=== PATIENT | female | born 1995 | race Caucasian/White ===

== ENCOUNTER 2017-01-18 04:17 | Inpatient (IN) | payer OTHER ==
[2017-01-18] MEDS ORDERED: OLANZapine 10 MG/2 ML VIAL IM ONE ×2 (04:22→04:28)
--- NOTE | 2017-01-18 04:52 | EDPHY ---
H & P Stated Complaint: psych eval, brought by [facility] for SI, attempted to cut self with screwdriver - Personal History Current Tetanus/Diphtheria Vaccine: Unsure Current Tetanus Diphtheria and Acellular Pertussis (TDAP): Unsure - Medical/Surgical History Other PMH: fx leg - Social History Smoking Status: Never smoked Time Seen by Provider: 01/18/17 04:26 HPI/ROS: Chief Complaint: Suicidal ideation, intoxication HPI: 21-year-old intoxicated female was expressing suicidal ideation to her roommates. She then grabbed screwdriver attempted to stab herself in the left arm. PD was called and she was placed on a mental health hold. Patient admits to prior suicidal attempts in the past. She is not currently being treated for depression. Does admit to drinking alcohol. Denies any other drug use. No falls or head injuries. Denies any other complaints or injuries at this time. ROS: 10 point Review of Systems is negative except as noted in the HPI. PMH: Depression Social History: No smoking, positive alcohol, no recreational drug use Family History: non-contributory Physical Exam: Gen: Awake, Alert, slurred speech, aggressive and belligerent HEENT: Nose: no rhinorrhea Eyes: PERRLA, EOMI Mouth: Moist mucosa Neck: Supple, no JVD Chest: nontender, lungs clear to auscultation Heart: S1, S2 normal, no murmur Abd: Soft, non-tender, no guarding Back: no CVA tenderness, no midline tenderness Ext: no edema, non-tender, she has superficial scratches over her left forearm which do not Skin: no rash Neuro: CN II-XII intact, Sensation grossly intact, Strength 5/5 in bilateral upper and lower extremities (Bruce Novak) Constitutional: Initial Vital Signs Heart Rate 111 H 01/18/17 04:35 Respiratory Rate 34 H 01/18/17 04:35 Blood Pressure 136/84 H 01/18/17 04:35 O2 Sat (%) 100 01/18/17 04:35 O2 Delivery Mode Room Air Allergies/Adverse Reactions: No Known Allergies Allergy (Verified 01/18/17 18:29) Home Medications: Medication Instructions Recorded Ethinyl Estradiol/Drospirenone 1 each PO DAILY 01/18/17 [Yamel 28 Tablet] Medical Decision Making ED Course/Re-evaluation: [address] Burleson pending evaluation and disposition. no issues during my care this patient overnight. (Bruce Novak) Other Provider: Care assumed at 1500 with psych evaluation pending. Elevated alcohol and positive cocaine noted. Temperature 36.8degrees axillary at 5:14 a.m.. The patient will be transferred to [facility] for inpatient psychiatric hospital bed not available at this facility, in stable condition; accepting physician is Dr. Oliverio Cardenas, at 5:49 p.m.. (Isidro Richardson) - Data Points Laboratory Results: Laboratory Results 01/18/17 05:00 01/18/17 05:00 01/18/17 12:30 Urine Opiates Screen NEGATIVE (NEGATIVE) Urine Barbiturates NEGATIVE (NEGATIVE) Ur Phencyclidine Scrn NEGATIVE (NEGATIVE) Ur Amphetamine Screen NEGATIVE (NEGATIVE) U Benzodiazepines Scrn NEGATIVE (NEGATIVE) Urine Cocaine Screen NON-NEGATIVE H (NEGATIVE) U Marijuana (THC) Screen NEGATIVE (NEGATIVE) Medications Given: Discontinued Medications Olanzapine (Zyprexa Im Injection) 10 mg IM EDNOW ONE Stop: 01/18/17 04:29 Last Admin: 01/18/17 04:30 Dose: 10 mg Departure - Departure Disposition: [facility] IP Clinical Impression: Severe major depression, Suicidal ideation Alcohol intoxication Qualifiers: Complication of substance-induced condition: uncomplicated Qualified Code(s): F10.920 - Alcohol use, unspecified with intoxication, uncomplicated Instructions: Alcohol Intoxication (ED) Referrals: Derrell Simms MD [Medical Doctor] - As per Instructions
[2017-01-18 05:07] LABS: % IMMATURE GRANULYOCYTES 0.4 % (0.0-1.1); ABSOLUTE IMMATURE GRANULOCYTES 0.03 10^3/uL (0.00-0.10); ADD DIFF? NO; ADD MORPH? NO; ADD SCAN? NO; ATYPICAL LYMPHOCYTE FLAG 30 (0-99); FRAGMENT RBC FLAG 0 (0-99); HEMATOCRIT 42.4 % (38.0-47.0); HEMOGLOBIN 14.7 g/dL (12.6-16.3); LEFT SHIFT FLG 0 (0-99); LIPEMIA HEMOLYSIS FLAG 90 (0-99); MEAN CELL HEMOGLOBIN 31.1 pg (27.9-34.1); MEAN CELL HEMOGLOBIN CONCENTR. 34.7 g/dL (32.4-36.7); MEAN CELL VOLUME 89.6 fL (81.5-99.8); MEAN PLATELET VOLUME 8.6 fL (8.7-11.7); PLATELET CLUMPS FLAG 0 (0-99); PLATELET COUNT 337 10^3/uL (150-400); RED BLOOD CELL COUNT 4.73 10^6/uL (4.18-5.33); RED CELL DISTRIBUTION WIDTH 11.9 % (11.5-15.2)
[2017-01-18 05:19] LABS: ANION GAP 18 mEq/L (8-16); CALCIUM 9.2 mg/dL (8.5-10.4); CARBON DIOXIDE 19 mEq/l (22-31); CHLORIDE 107 mEq/L (97-110); CREATININE 0.8 mg/dL (0.6-1.0); ETHANOL SERUM 247 mg/dL (0-10); GLOMERULAR FILTRATION RATE > 60; GLUCOSE 104 mg/dL (70-100); SODIUM 144 mEq/L (134-144)
[2017-01-18] MEDS ORDERED: ACETAMINOPHEN 325 MG TAB PO PRN (21:28)
[2017-01-18] MEDS ORDERED: NICOTINE POLACRILEX 2 MG GUM B PRN (21:28)
[2017-01-18] MEDS ORDERED: MAGNESIUM HYDROXIDE 30 ML UDCUP PO PRN (21:28)
[2017-01-18] MEDS ORDERED: LORazepam 0.5 MG TAB PO PRN (21:28)
[2017-01-18] MEDS ORDERED: MAG HYDROX/AL HYDROX/SIMETH 30 ML UDCUP PO PRN (21:28)
[2017-01-18] MEDS ORDERED: MELATONIN 3 MG TAB PO PRN (21:29)
[2017-01-19 06:39] VITALS: RESP 14
--- NOTE | 2017-01-19 10:23 | GCON ---
[f rep st] CONSULTATION INTERNAL MEDICINE CONSULTATION DATE OF CONSULTATION: 01/19/2017 REASON FOR CONSULTATION: Medical evaluation for psychiatric care. HISTORY OF PRESENT ILLNESS: This is a 21-year-old female who was admitted on an M1 hold due to a perea icide attempt. Per her report, she became increasingly anxious and fearful secondary to social situ ations here at school. 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 She was concerned about money, startin g school again, and for unclear reasons and for reasons which she does not remember began drinking, and used some cocaine. She does not regularly use cocaine, and does not remember using it prior to this event. She apparently attempted to commit suicide by using a screwdriver puncturing her left a ntecubital fossa. The puncture was unsuccessful. She was found by roommates in the hallway of her apartment building, and thus ultimately brought to the Emergency Department, where she was placed on an M1 hold for a suicide attempt, alcohol intoxication, and cocaine use. Per her report, she has n ever attempted suicide previously. Does not regularly use cocaine, and does not regularly consume a lcohol in abuse levels. Medically, she did denies any other health problems on a regular basis, and takes only control pills. PAST MEDICAL HISTORY: Denies asthma, allergies, high blood pressure, diabetes, renal problems. PAST SURGICAL HISTORY: None. ALLERGIES: None. CURRENT MEDICATIONS: control pills only. REVIEW OF SYSTEMS: A 10-point review of systems is entirely negative. Specifically, she denies rec ent headache. No sore throat cough chest pain, nausea, vomiting, diarrhea or dysuria. She has no h istory of frequent urinary tract infections. She denies a history of hepatitis or jaundice, and has never used IV drugs. 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 Tobacco: None. Alcohol: She drinks socially from time to time, but denies drinking and abuse. Drugs: She does no t use recreational drugs, and does not recall how she obtained the cocaine or when she used it on event. The patient is single, attending school here at . Her biologic father in a motor vehicle accident at the time of her very young age, and she does not remember her biologic father. Her stepfather, who was in the , 3 years ago. Her mother lives with her 2 younger brot hers who are age 17 in [place]. She attended school in [place] and graduated high school there. Esequiel cali has been in contact with her mother regarding this event, and the mother will be flying in from [employer] [place] to see her. FAMILY HISTORY: Negative for any psychiatric disorder or medical disorders. PHYSICAL EXAMINATION: GENERAL: This is a pleasant, alert female whom I am seeing on the Behavioral Health Unit. VITAL SIGNS: Normal. She has been afebrile since admission. HEENT: Normal, showin g no signs of trauma. Tongue, buccal mucosa are normal without lesions. Posterior oropharynx malik l. LUNGS: Clear to P and A without wheezing or rales. HEART: Singular S1, S2. No murmur or gall op. ABDOMEN: Normoactive bowel sounds. No masses, tenderness, or organomegaly. EXTREMITIES: A s uperficial ecchymosis in the left antecubital fossa, about the shape of the head of up screwdriver. She did not puncture the skin, and there is no underlying trauma. The right hand though shows some swelling in the 4th and 5th MCP joints where she reports she punched a wall. The area appears stab le. There is very slight ecchymosis in the region. NEUROLOGIC: She is an oriented x3, calm female . Cranial nerves 2-12 intact to specific testing. Motor and sensory function intact. ASSESSMENT: 1. Suicide attempt. Per her own admission using a screwdriver to attempt to puncture her left ante cubital fossa. 2. Right hand trauma with contusion and possible fracture. An x-ray of the right hand will be orde red. 3. Acute alcohol intoxication at the time of admission, with an alcohol level of 247. 4. Substance abuse of cocaine noted on tox screen on admission. The patient reports this is not a regular substance of abuse, and she does not know how she obtained it or when she used the cocaine. 5. Metabolic acidosis, mild secondary to alcohol abuse and mild dehydration. This problem should n icely resolve with a regular diet and regular hydration here on the Behavior Health Unit. 6. The patient is medically cleared for further psychiatric care. PLAN: An x-ray of the right hand will be ordered and interpreted via the electronic record by markell stahl. I do not believe it is necessary to obtain a second BMP, as with a regular diet she should clear the very mild metabolic acidosis exhibited on admission. Thank you very much for this consultation. I will review the x-ray of her right hand when available . If you need further assistance, please contact our service. /[id number]/MODL
[2017-01-19] MEDS: DROSPIRENONE PO SCH (12:06)
[2017-01-19] MEDS: ETHINYL ESTRADIOL PO SCH (12:06)
--- NOTE | 2017-01-19 13:59 | BAPA ---
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 The [place] police were contacted by the patient's roommates, who were worrie d about her because they found her intoxicated and attempting to harm herself with a screwdriver. H er roommate, who has lived with her 8 months, Manju, said that they went to a neighbor's green party an d the patient continued to drink pitchers of hard liquor, and that later in the evening Manju fou nd her in the stairwell of their apartment. She called 911 and took the patient back to their apart ment. When EMS arrived, the patient became really distressed, was crying, stating that she wanted t o kill herself. She did not want to live because of her grades, finances, and lack of relationship with friends and family. The roommate was afraid that patient could not be safe, and that with so m any stressors going on, that she could not stay by herself in the apartment. She told the police of ficers and the EMS on the scene "my reasons for wanting to commit suicide are primarily based on esc aping from my problems." When the patient was evaluated on 01/19/2017, the day after her ED admissi on, she admits that 01/18/2017 was "the lowest point in my life," but she says that she has turned t he corner. She says "I have put those problems behind me." She says that since she sobered up and being in the hospital, she has thought about everything that she has been going through and she no l onger feels hopeless or helpless. She is not despondent. She denies feeling depressed. She says t hat she does not really remember much of what happened the night prior to going to the emergency dep artment. She remembers going out with her friends and drinking "a lot." She says that she "blacked out" and says "I don't remember anything except drinking a lot." Later on, her roommates told her that they found her in the apartment stairwell, that she was crying and visibly upset. The patient says that her friends attempted to "calm me down. I was very upset." She says that she has been un karolina a lot of stress for the past several days. She has moved into a new apartment. She says that s he was very worried about school coming up because she failed multiple classes in the summer term giselle fernandez last semester. She has been struggling and her grades have been falling. She also is supposed to start [employer] training next summer, and she says that puts "a lot of pressure on me." She is also very far away from her family. Her mother works for the [employer] and is a schoolteache r in [place], lives there with her 2 younger brothers. She came to [place] to go to school because her maternal grandparents were living in [place] at the time, but shortly after the catina arriola started her freshman year at [employer], her maternal grandparents moved to [place], so she does not really have any family in the state anymore. The patient denied any thoughts, plans or intents to hurt herself or anyone else. She says "I have never had suicidal thoughts before," and she does not remember stabbing herself with a screwdriver. PAST PSYCHIATRIC HISTORY: The patient denies any history of psychiatric treatment. She has never s een a psychiatrist, counselor or therapist before. She has never taken medications for her mood or any other psychiatric medications. She has never been [facility] an [facility] before. She denies ever having suicidal thoughts. She has never made a suicide attempt. Esequiel cali has no prior history of self-harming. ALLERGIES: The patient states that she has no known drug allergies. CURRENT MEDICATIONS: None. PAST MEDICAL HISTORY: Noncontributory. Patient denies any history of physical illness. She denies ever having any surgery. She denies any seizures. She has never had head trauma. SOCIAL HISTORY: Patient lives in an apartment. She moved into a new apartment with a friend, Lucien albarado, who has been her roommate for about 8 months. They have 2 new roommates that they are living w [facility]. The patient says that she never knew her father. She reports that her mother and 2 younger br others live in [place]. Her mother works for the [employer] and is a schoolteacher. She said her grandparents used to live in [place] but they have since moved to [place] when they retired. She moved back to the [place] from [place] when she graduated high school to attend college in [place] because that is where her grandparents were living at the time. She started [employer] classes at [employer] about 3 years ago. She says that she has completed 4 semesters and she w as in summer school recently. She lives with 3 friends in [place] year round, but says that she richey s not have very much of a support system. Really Manju, the one friend that she has lived with zeinab harris, is the only close friend that she has. SUBSTANCE USE HISTORY: The patient says that she drinks 1-2 times a month and drinks "no more than 3 drinks" per occasion. She says that she has never had a history of drinking more than that before ; however, she does admit to drinking a lot more than usual on the night prior to going to the ED. Her blood alcohol level when she went to the ED on 01/18/2017 was 247. The patient says that she black s tried marijuana once but she says that she does not use it because she is in [facility]. She denies use of any other drugs of abuse. Although her urine drug screen was positive for cocaine, she says she does not know how she got the cocaine. FAMILY HISTORY: Patient denies any family history of mental illness or substance use disorder. LEGAL HISTORY: Patient denies any legal problems. LABORATORY DATA: Admission labs are as follows: White cell count was 7.11, hemoglobin was 14.7, he matocrit 42.4, platelet count was 337. Sodium 144, potassium 4.0, chloride 107, BUN 10, creatinine 0.8, glucose 104, calcium 9.2. test was negative. Acetaminophen level was undetected. [facility] was positive for cocaine, negative for all other drugs of abuse. Blood alcohol lev el was 247. MENTAL STATUS EXAMINATION: This is a well-developed, appropriately-groomed female, wearing a plaid shirt and jeans. She has a pleasant demeanor. She is cooperative. She denies any depression or an xiety. Her affect is euthymic. She describes her mood as "a lot better." Her thought process is l inear and goal directed. Her thought content reveals no evidence of psychosis. There are no signs or symptoms of manoj. She denies any thoughts, plans or intents to hurt herself or anyone else. Sh karely is alert and oriented x4. Her intellect appears to be average based on her educational history, f und of knowledge, and vocabulary. Her insight and judgment are fair. DIAGNOSTIC IMPRESSION: 1. Depression, rule out substance induced. 2. Alcohol use disorder, mild. 3. Psychosocial stressors include poor academic performance, failing grades, pressure from ROTC, fa vickie lives in [place], social isolation, lack of peer support, financial problems. PLAN: 1. Admit patient to the behavioral health services inpatient unit on an M1 hold. 2. Monitor closely for safety. Does not need to be on suicide precautions, given the patient is de nying any thoughts, plans or intent to hurt herself. She is dipti for safety. 3. Psychiatrist discussed options for medications, including SSRIs to treat depression while catina arriola is going through a stressful transition in her life. She states that she does not want to take me dications. She says "I don't personally believe in meds." She also says that she thinks "this is a ll just temporary. It will pass." The patient is open to seeing a therapist or counselor through [facility] [employer] because she agrees with the psychiatrist's recommendation that having someone to talk to would be a good way to help deal with her stress and learn better coping skills, and will give her an outlet to prevent any further risk of her getting into a similar situat ion where she does something reckless while she is intoxicated. MD has also stressed the adverse ef fects that alcohol has on mood as well as impairing judgment and cognition and increasing impulsivit y and the risk of engaging in harmful behaviors. The patient acknowledges this and says "I'm not ev er going to do that again.". 4. The patient will engage in individual, group and milieu therapies while on the inpatient unit. 5. Estimated length of stay is 2-3 days. /[id number]/MODL
[2017-01-20] MEDS: ETHINYL ESTRADIOL PO SCH (08:30)
[2017-01-20] MEDS: DROSPIRENONE PO SCH (08:30)
--- NOTE | 2017-01-20 12:07 | SOAPPROG ---
SOAP Progress Note Assessment/Plan: Assessment: 01/20/17 11:54 Plan: 1. Patient continues to refuse psych meds. 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 2. Patient will be referred to [facility] for counseling or to [facility]. 3. Patient's MOC is flying in from [facility]. MOC is aware that roommates , including patient's best friend (Manju), feel that patient has a drinking problem. 4. MD recommends IOP for alcohol use disorder and DBT or similar type IOP or individual therapy. Also strongly recommend SSRI or similar for depression/ anxiety. Subjective: Met with patient and discussed with staff. Patient had visit with her roommate last night. Her roommate, Manju, is concerned that patient might do something reckless or impulsive again. Patient says the only reason she tried to hurt herself was b/c she was drunk and had "blacked out." She says, "I will never do anything like again." However, Manju shared information with CC that is concerning. According to Manju, patient has been drinking "a lot" more frequently than patient admitted. Manju says patient binge drinks to point of intoxication "several times a week." Per Manju, patient also sits in her room most of the day with lights turned off "crying." Manju and other roommates have encouraged patient to seek mental health counseling, but so far patient has refused. 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 Manju has spoken to patient's MOC who is flying to [place] from [facility] and will arrive [facility]. According to Manju, patient cannot return to live at their house. Her roommates are trying to get her taken off the lease, and packing up her belongings. The patient insists she has no thoughts, plan or intent to hurt herself. Manju acknowledges that even though patient presents as depressed, the only time she has engaged in self-harm behaviors or voiced feeling like "giving up" is when she is drunk. She doesn't act that way or say those things when she is sober. Objective: Vital Signs Temp Pulse Resp BP Pulse Ox 36.7 C 53 L 14 98/50 L 96 01/20/17 06:30 01/20/17 06:30 01/20/17 06:30 01/20/17 06:30 01/20/17 06:30 MSE: Pleasant, calm, appropriate, wearing street clothes. Affect: Euthymic Mood : "Good" TP: Linear, goal-directed TC: Denies AH/VH, no paranoia, no delusions , denies any thoughts, plan or intent to hurt herself or others. Insight/ Judgment: Poor - Time Spent With Patient Time Spent With Patient: 20" - Pending Discharge Pending Discharge Within 24 Hours: No ICD10 Worksheet Patient Problems: Problems Problem Status Onset Alcohol intoxication Acute Alcohol use disorder, severe, dependence Acute Severe major depression Acute Suicidal ideation Acute - ICD10 Problem Qualifiers (1) Alcohol use disorder, severe, dependence
[2017-01-21] MEDS: DROSPIRENONE PO SCH (07:56)
[2017-01-21] MEDS: ETHINYL ESTRADIOL PO SCH (07:56)
--- NOTE | 2017-01-21 15:06 | SOAPPROG ---
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 Bipolar Unlikely. EtOH abuse v dependence Possible cluster B personality Disorder Plan: Engage in safety planning and work on follow up plan. Minimal medications as patient wants to pursue therapy. 01/21/17 15:07 Subjective: "I just learned." (that she can not return to her apartment. "I'm going to [place] with my mom." 21 yo f with mood, anxiety, alcohol, and behavioral issues. Declines medications. Mother arrived from [facility] where she works as a contract worker with the [employer]. Ms. Cheng is going to take a semester off of school, return to [place] with mother, and expects to be able to do therapy in [facility] and then return to finish school at . Denies SI. Tells me she still does not remember events that landed her in the hospital. Objective: Vital Signs Temp Pulse Resp BP Pulse Ox 36.5 C 65 14 100/51 L 97 01/21/17 06:00 01/21/17 06:00 01/21/17 06:00 01/21/17 06:00 01/21/17 06:00 BCP is only schedule med. MSE Awake, alert, oriented. Casually dressed and groomed. Stated mood and affect are congruent with limited range. Linear thoughts. Does not appear to respond to internal stimuli. Limited insight and judgment. ICD10 Worksheet Patient Problems: Problems Problem Status Onset Alcohol intoxication Acute Alcohol use disorder, severe, dependence Acute Severe major depression Acute Suicidal ideation Acute
[2017-01-21] MEDS ORDERED: OLANZapine 5 MG TAB PO PRN (15:10)
[2017-01-22 06:18] VITALS: BP 105/55; PULSE 66; TEMP 97.9; O2SAT 95
[2017-01-22] MEDS: ETHINYL ESTRADIOL PO SCH (09:42)
[2017-01-22] MEDS: DROSPIRENONE PO SCH (09:42)
--- NOTE | 2017-01-22 12:58 | BDS ---
[f rep st] BEHAVIORAL HEALTH DISCHARGE SUMMARY DIAGNOSES: 1. 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 2. Alcohol abuse. 3. Urine tox screen positive for cocaine, which the patient denies and may be a false positive. PROCEDURES: None. COMPLICATIONS: None. BRIEF REVIEW OF CASE: The patient is a 21-year-old female. She is a student at the [employer]. She has had a significant amount of stress over the past several months. She has had trouble with school. Her mother moved out of the country with her younger siblings. Her mother moved to [place], where she works [place] a service [place], teaching school. This has isolated this patient somewhat. The patient's grandparents, with whom she was close, moved from [place] to [facility], also removing one usual support system from this patient. The patient had become overwhelmed by these and other stressors. She had moved in with a new roommate, and this was somewhat stress, too. She became very inebriated, unusual for her. She does not drink more than 2 times per month and no more than 3 drinks on each occasion, according to her history. I have no reason to disbelieve this. She became significantly more inebriated this one time, though, and became then acutely despondent and talked about suicide and attempted to injure herself but was prevented from injuring herself. She was admitted to the inpatient psychiatric unit. As the inebriation faded, she was able to regroup, talk better about her stresses and her difficulties. She adamantly and persistently denied that she was suicidal. She admits that she has a problem with alcohol and will be seeking help and will stay sober. She denies other drug use. Again, she had a urine tox screen that was positive for cocaine, but she adamantly denies use, and this may be a false positive. She admitted to depressed mood but denied a depressed mood that was persistent on more days than not for most of the day for 2 or more weeks, nor did she have persistent symptoms of major depressive disorder. Thus, I think the best diagnosis for her is adjustment disorder with mixed disturbance of conduct and emotions rather than a major depressive disorder or an adjustment disorder with depression diagnosis. Patient's mother came to the [place] from her work in [place]. They were able to make some plans for the future. The decision that the family arrived at together is that our patient will drop out of this semester at . She will return to [place] with her mother and seek counseling help there, as well as part-time work. The patient hopes to return to the [employer] for the spring and resume her studies. She also commits to sobriety. She will try to do some online classes as well. I do assess her dangerousness risk as minimal at the time of discharge for the reasons stated above. She does not have significant ongoing risk factors for suicide that are correctable. We did not treat with any medications during this hospital stay. We gave her a safe environment. She remained on her control pills, but otherwise did not take medications. We offered her antidepressants and mood stabilizing medications, but after discussion, we agreed that they were not necessary. Further evaluation in the outpatient clinic will certainly be helpful to see if there is an underlying persistent disorder that might benefit from medication treatment. She is being discharged with no medications, except to resume her control pills. Plan for followup care is being made by her and her mother and will take place in [place], so we are not able to have more details at this point in time. Our records are, of course, available after discharge. We do hope she follows through on this plan, remains sober, and can find help in therapy. /[id number]/[id number] MTDD
== END 2017-01-22 13:10 | disposition home or self-care (01) | DRG 882 ==
LOC: BBEH 19:35
PROVIDERS: ADMIT Psychiatry & Neurology Psychiatry; ATTEND Specialist
DX: F43.20 Adjustment disorder, unspecified (principal); E87.2 Acidosis; E86.0 Dehydration; F10.920 Alcohol use, unspecified with intoxication, uncomplicated; Y90.8 Blood alcohol level of 240 mg/100 ml or more; S60.221A Contusion of right hand, initial encounter; W22.09XA Striking against other stationary object, initial encounter
CPT/HCPCS: 80305; G0480